=== PATIENT | male | born 1985 | race Caucasian/White ===

== ENCOUNTER 2016-10-11 19:35 | Emergency (ER) | payer OTHER | END 2016-10-11 20:18 | disposition home or self-care (01) | DX: M20.012 Mallet finger of left finger(s) (principal); W21.06XA Struck by volleyball, initial encounter; Y93.68 Activity, volleyball (beach) (court); Y92.318 Other athletic court as the place of occurrence of the external cause; R03.0 Elevated blood-pressure reading, without diagnosis of hypertension ==

== ENCOUNTER 2018-04-14 22:29 | Emergency (ER) | payer OTHER ==
[2018-04-14 22:51] VITALS: BP 121/77
[2018-04-14] MEDS ORDERED: LIDOCAINE VISCOUS 2% 15 ML UDC MM STA (23:21)
[2018-04-14] MEDS ORDERED: predniSONE 20 MG TABLET PO STA (23:21)
--- NOTE | 2018-04-14 23:25 | ED Physician Documentation ---
History of Present Illness - Stated complaint Stated Complaint: SORE THROAT - Chief complaint Chief Complaint: General - History obtained from History obtained from: Patient - History of Present Illness Timing: Other (32-year-old gentleman status post remote tonsillectomy complains of sore throat for a week without fevers or other URI symptoms. It is generally worsening. He was alarmed when he looked in the back of his throat and saw white patches where his tonsils were previously.) Review of Systems Constitutional: denies: Fever, Chills, Myalgias Ears: denies: Loss of hearing, Ear pain Nose: denies: Rhinorrhea / runny nose, Congestion Throat: reports: Sore throat PD PAST MEDICAL HISTORY - Past Surgical History Past Surgical History: Yes HEENT: Tonsil/Adenoidectomy - Present Medications Home Medications: Ambulatory Orders Medication Instructions Recorded Confirmed Phenol [Chloraseptic] 1 sprays MM Q4HR PRN #1 bottle 04/14/18 predniSONE [Prednisone] 60 mg PO DAILY 5 Days #15 tablet 04/14/18 - Allergies Allergies/Adverse Reactions: Allergies Allergy/AdvReac Type Severity Reaction Status Date / Time No Known Drug Allergies Allergy Verified 04/14/18 22:51 - Social History Does the pt smoke?: No Smoking Status: Never smoker Does the pt have substance abuse?: No - Immunizations Immunizations are current?: Yes PD ED PE NORMAL - Vitals Vital signs reviewed: Yes - General General: Alert and oriented X 3, No acute distress - HEENT HEENT: Other (He has ulcers on the tonsillar pillars c/w viral pharyngitis.) - Neck Neck: Supple, no meningeal sign, No bony TTP, Other (Mild anterior cerv adenopathy) - Neuro Neuro: Alert and oriented X 3, Normal speech Results - Vitals Vitals: Vital Signs - 24 hr 04/14/18 22:46 Temperature 36.7 C Heart Rate 55 L Respiratory 16 Rate Blood Pressure 121/77 O2 Saturation 97 Oxygen O2 Source Room air - Labs Labs: Laboratory Tests 04/14/18 22:45 Group A Strep Rapid Negative PD MEDICAL DECISION MAKING - Sepsis Event Vital Signs: Vital Signs - 24 hr 04/14/18 22:46 Temperature 36.7 C Heart Rate 55 L Respiratory 16 Rate Blood Pressure 121/77 O2 Saturation 97 Oxygen O2 Source Room air Departure - Departure Disposition: 01 Home, Self Care Clinical Impression: Viral pharyngitis Condition: Good Record reviewed to determine appropriate education?: Yes Instructions: ED Pharyngitis Viral Report Pending Prescriptions: Phenol [Chloraseptic] 1 sprays MM Q4HR PRN #1 bottle PRN Reason: Mouth Sore Pain predniSONE [Prednisone] 60 mg PO DAILY 5 Days #15 tablet Comments: Call your doctor to arrange a follow-up appointment, make the next available appointment. In the interim, return anytime if worse or if new symptoms develop.
== END 2018-04-14 23:36 | disposition home or self-care (01) ==
LOC: ED 22:29
DX: J02.9 Acute pharyngitis, unspecified (principal)
CPT/HCPCS: 87070; 87430; 99283; J7512

== ENCOUNTER 2021-04-03 08:00 | Outpatient (CLI) | payer OTHER ==
[2021-04-03 17:55] LABS: BASOPHILS # (AUTO) 0.1 10^3/uL (0.0-0.1); BASOPHILS % (AUTO) 0.6 %; EOSINOPHILS # (AUTO) 0.2 10^3/uL (0.0-0.7); EOSINOPHILS % (AUTO) 2.6 %; HCT - HEMATOCRIT 43.9 % (42.0-52.0); HGB - HEMOGLOBIN 14.6 g/dL (14.0-18.0); LYMPHOCYTES % (AUTO) 22.7 %; MEAN CORPUSCULAR HEMOGLOBIN 29.7 pg (27.0-31.0); MEAN CORPUSCULAR HGB CONC 33.3 g/dL (32.0-36.0); MEAN CORPUSCULAR VOLUME 89.4 fL (80.0-94.0); MEAN PLATELET VOLUME 9.3 fL (7.4-11.4); MONOCYTES # (AUTO) 0.8 10^3/uL (0.0-1.0); MONOCYTES % (AUTO) 8.7 %; NEUTROPHILS # (AUTO) 5.8 10^3/uL (1.5-6.6); NEUTROPHILS % (AUTO) 64.8 %; PLT - PLATELET COUNT 400 10^3/uL (130-450); RED BLOOD COUNT 4.91 10^6/uL (4.70-6.10); RED CELL DISTRIBUTION WIDTH 13.6 % (12.0-15.0)
== END 2021-04-03 23:59 | disposition home or self-care (01) ==
LOC: LAB.N 08:00
PROVIDERS: ATTEND Physician Assistant Medical
DX: R19.7 Diarrhea, unspecified (principal)
CPT/HCPCS: 36415; 85025

== ENCOUNTER 2021-04-03 11:20 | Outpatient (CLI) | payer OTHER ==
--- NOTE | 2021-04-03 12:44 | XRAY Report ---
PROCEDURE: Abdomen 2 View X-Ray INDICATIONS: ACUTE DIARRHEA TECHNIQUE: 1 view of the abdomen were acquired. COMPARISON: None FINDINGS: Surgical changes and devices: None. Bowel: No pneumoperitoneum. The bowel gas pattern is normal. Soft tissues: No masses; visualized solid organ contours appear normal in size. No suspicious abdom inal calcifications. Bones: No suspicious bony abnormalities. IMPRESSION: Normal bowel gas pattern, source of current symptomatology is not seen. Reviewed by: Des Mora MD on 04/03/2021 12:43 PM PDT Approved by: Des Mora MD on 04/03/2021 12:43 PM PDT Station ID: [id number]
== END 2021-04-03 23:59 | disposition home or self-care (01) ==
LOC: DI.N 11:20
PROVIDERS: ATTEND Physician Assistant Medical
DX: R19.7 Diarrhea, unspecified (principal)